=== PATIENT | male | born 1945 | race Caucasian/White ===

== ENCOUNTER → 2017-03-31 | Outpatient (CLI) | payer MEDICARE, BC ==
[2017-03-31 13:20] LABS: HCT (SEDRATE) 39.6 % (39.2-51.8)
== END ==
LOC: LAB 10:22
PROVIDERS: ATTEND Orthopaedic Surgery
DX: Z47.1 Aftercare following joint replacement surgery (principal); Z96.652 Presence of left artificial knee joint
CPT/HCPCS: 36415; 85651; 86140

== ENCOUNTER 2018-03-20 21:30 | Inpatient (IN) | payer MEDICARE, BC ==
[~2018-03-20] VITALS: Ht 154.9 cm; Wt 77.3 kg
[2018-03-20 22:22] LABS: BASOPHILS # (AUTO) 0.07 x10^3/uL (0-0.1); BASOPHILS % (AUTO) 1 % (0-1); EOSINOPHILS % (AUTO) 1 % (1-7); LYMPHOCYTES % (AUTO) 22 % (22-44); MD NO; MEAN CORPUSCULAR HEMOGLOBIN 29.2 pg (27.5-34.5); MEAN CORPUSCULAR HGB CONC 33.2 g/dL (33.2-36.2); MEAN CORPUSCULAR VOLUME 88.1 fL (81-97); MEAN PLATELET VOLUME 8.2 fL (7.4-10.4); MONOCYTES # (AUTO) 1.11 x10^3/uL (0.2-0.8); MONOCYTES % (AUTO) 14 % (2-9); NEUTROPHILS % (AUTO) 61 % (42-75); PLATELET COUNT 408 x10^3/uL (130-400); RED BLOOD COUNT 3.68 x10^6/uL (4.38-5.82); RED CELL DISTRIBUTION WIDTH 16.7 % (9.4-14.8)
[2018-03-20] MEDS ORDERED: SODIUM CHLORIDE FLUSH 10ML SYR IVF ONE (22:30)
[2018-03-20] MEDS ORDERED: SODIUM CHLORIDE 0.9% 1,000ML IVBOLUS ONE (22:30)
[2018-03-20 22:31] LABS: INTERNATIONAL NORMALIZED RATIO 1.01 (0.93-1.1); PROTHROMBIN TIME 10.7 Seconds (9.6-11.5)
[2018-03-20 22:33] LABS: ALANINE AMINOTRANSFERASE 26 U/L (12-78); ALBUMIN 3.2 g/dL (3.4-5.0); ANION GAP 9 mmol/L (5-15); CHLORIDE 112 mmol/L (98-107); CREATININE 1.69 mg/dL (0.7-1.3)
[2018-03-20 22:37] LABS: ALKALINE PHOSPHATASE 81 U/L (45-117); BILIRUBIN,TOTAL 0.2 mg/dL (0.2-1.0); TOTAL PROTEIN 6.1 g/dL (6.4-8.2)
[2018-03-20] MEDS ORDERED: CALCIUM GLUCONATE 4.6 MEQ in SODIUM CHLORIDE 0.9% 50 ML IV ONE (23:30)
[2018-03-20] MEDS ORDERED: DEXTROSE 50%, 50ML SYRINGE IVPush ONE (23:30)
[2018-03-20] MEDS ORDERED: CALCIUM GLUCONATE 4.6 MEQ/10 ML IVPush ONE (23:30)
[2018-03-20] MEDS ORDERED: INSULIN REGULAR 100 UNITS/ML, 3ML VIAL IVPush ONE (23:30)
[2018-03-20] MEDS ORDERED: DEXTROSE 50%, 50ML SYRINGE ONE (23:42)
[2018-03-20] MEDS ORDERED: INSULIN REGULAR 100 UNITS/ML, 3ML VIAL ONE (23:45)
[2018-03-20] MEDS ORDERED: CALCIUM GLUCONATE 4.6 MEQ/10 ML ONE (23:48)
--- NOTE | 2018-03-21 00:07 | NUR ---
IN FOR RECHECK, PT AGREES TO POC (ADMIT)
[2018-03-21 00:14] LABS: TROPONIN I 0.022 ng/mL (0.000-0.045)
--- NOTE | 2018-03-21 00:25 | NUR ---
Late Note: Pt reports increased weakness today progressing into left sided weakness. Pt arrives to ED with alert and oriented x4, pale, hypotensive, dizzy.
--- NOTE | 2018-03-21 00:25 | NUR ---
Pt to [place], will hang meds when back.
--- NOTE | 2018-03-21 00:26 | NUR ---
Pt reports feeling less dizzy and weakness resolving. Agrees to POC (meds, admit with nephrology consult) Aware of need for UA, states he will continue to try. Water given to pt after inital MD assessment with MD marlow
[2018-03-21] MEDS ORDERED: SODIUM BICARBONATE 8.4% 150 MEQ in DEXTROSE 5% 1,000 ML IV SCH ×2 (00:30)
[2018-03-21] MEDS ORDERED: ACETAMINOPHEN 325 MG TABLET PO PRN (00:30)
[2018-03-21] MEDS ORDERED: ONDANSETRON 2MG/ML, 2ML IVPush PRN (00:30)
--- NOTE | 2018-03-21 00:54 | NUR ---
Report to Bryan POLANCO. pt ready for transport.
--- NOTE | 2018-03-21 00:55 | NUR ---
Fluids infusing to floor
[2018-03-21 01:32] VITALS: BP 101/60
[2018-03-21 01:38] LABS: MICROSCOPIC AUTO
[2018-03-21 01:40] LABS: CULTURE INDICATED? YES
[2018-03-21] MEDS ORDERED: TIZANIDINE 4MG TABLET PO SCH ×2 (02:30→21:00)
[2018-03-21] MEDS ORDERED: HYDROcodone/APAP 5/325 TABLET PO PRN (02:30)
[2018-03-21] MEDS ORDERED: ATOR20TA86 PO (03:00)
[2018-03-21] MEDS ORDERED: GLIP2.5T3 PO (03:00)
[2018-03-21] MEDS ORDERED: PREG20SO PO (03:01)
[2018-03-21] MEDS ORDERED: TIZA4CAP PO (03:08)
[2018-03-21] MEDS ORDERED: MONT10TA9 PO (03:08)
[2018-03-21] MEDS ORDERED: OMEP20CA14 PO (03:08)
[2018-03-21] MEDS ORDERED: PANT40GR PO (03:08)
[2018-03-21] MEDS ORDERED: PROP10TA51 PO (03:08)
[2018-03-21] MEDS ORDERED: METF-649 PO (03:08)
[2018-03-21] MEDS ORDERED: RAMI10CA59 PO (03:08)
[2018-03-21] MEDS ORDERED: TRAM50TA2 PO (03:08)
[2018-03-21 04:58] LABS: ANION GAP 9 mmol/L (5-15); CALCIUM 7.9 mg/dL (8.5-10.1); CHLORIDE 110 mmol/L (98-107); CREATININE 1.43 mg/dL (0.7-1.3)
[2018-03-21] MEDS ORDERED: OMEPRAZOLE 20 MG CAPSULE.DR PO SCH (06:00)
[2018-03-21] MEDS ORDERED: PANTOPROZOLE 40MG TABLET PO SCH (06:00)
[2018-03-21 06:38] VITALS: BP 142/78
[2018-03-21] MEDS ORDERED: INSULIN LISPRO 100 UNITS/ML, PEN SQ-INSULIN SCH (07:00)
[2018-03-21] MEDS ORDERED: metFORMIN XR 500 MG TAB.ER.24H PO SCH (08:00)
[2018-03-21] MEDS ORDERED: MAGNESIUM SULFATE PMX 2GM/50ML 50 ML IV ONE (08:00)
[2018-03-21] MEDS ORDERED: GLIPizide ER 2.5 MG TABLET PO SCH (08:00)
[2018-03-21] MEDS: CEFTRIAXONE PMX 1GM/50ML 50 ML IV SCH (08:34)
[2018-03-21] MEDS ORDERED: PROPRANOLOL 40 MG TABLET PO SCH (09:00)
[2018-03-21] MEDS ORDERED: FLUTICASONE NASAL SPRAY 16GM NAS SCH (09:00)
[2018-03-21] MEDS ORDERED: PREGABALIN 150 MG CAPSULE PO SCH (09:00)
[2018-03-21] MEDS ORDERED: RAMIPRIL 10 MG CAPSULE PO SCH (09:00)
[2018-03-21] MEDS ORDERED: PHARMACY MAY ADJ FOR RENAL FX MC PRN (10:30)
[2018-03-21] MEDS: PYRIDOXINE 50MG TABLET PO SCH ×2 (12:20→20:07)
[2018-03-21] MEDS: CYANOCOBALAMIN 1,000 MCG TABLET PO SCH (12:20)
[2018-03-21] MEDS: INSULIN LISPRO 100 UNITS/ML, PEN SQ-INSULIN SCH ×3 (12:21→20:56)
[2018-03-21 12:55] LABS: TROPONIN I < 0.015 ng/mL (0.000-0.045)
[2018-03-21 13:06] LABS: HEMOGLOBIN A1C 8.4 % (4.2-6.3)
[2018-03-21 13:54] VITALS: BP 124/83
[2018-03-21 19:58] VITALS: BP 188/75
[2018-03-21] MEDS: PREGABALIN 150 MG CAPSULE PO SCH (20:07)
[2018-03-21] MEDS ORDERED: hydrALAzine 20 MG/ML, 1ML ONE (20:40)
[2018-03-21] MEDS: hydrALAzine 20 MG/ML, 1ML IV PRN (20:54)
[2018-03-21] MEDS ORDERED: MONTELUKAST 10 MG TABLET PO SCH (21:00)
[2018-03-21] MEDS ORDERED: ATORVASTATIN 40 MG TABLET PO SCH ×2 (21:00)
[2018-03-21 21:30] VITALS: BP 114/69
[2018-03-22] MEDS ORDERED: SODIUM BICARBONATE 8.4% 150 MEQ in DEXTROSE 5% 1,000 ML IV SCH (00:30)
[2018-03-22 02:43] VITALS: BP 149/89
[2018-03-22] MEDS ORDERED: PANTOPROZOLE 40MG TABLET PO SCH (06:00)
[2018-03-22 06:15] LABS: ALBUMIN 3.4 g/dL (3.4-5.0); ANION GAP 5 mmol/L (5-15); CALCIUM 8.8 mg/dL (8.5-10.1); CHLORIDE 111 mmol/L (98-107); CREATININE 1.25 mg/dL (0.7-1.3)
[2018-03-22] MEDS: CEFTRIAXONE PMX 1GM/50ML 50 ML IV SCH (07:39)
[2018-03-22] MEDS: hydrALAzine 20 MG/ML, 1ML IV PRN (07:40)
[2018-03-22] MEDS: PREGABALIN 150 MG CAPSULE PO SCH (07:40)
[2018-03-22] MEDS: PYRIDOXINE 50MG TABLET PO SCH (07:40)
[2018-03-22] MEDS: CYANOCOBALAMIN 1,000 MCG TABLET PO SCH (07:40)
[2018-03-22] MEDS: INSULIN LISPRO 100 UNITS/ML, PEN SQ-INSULIN SCH ×2 (07:41→11:00)
[2018-03-22 07:42] VITALS: BP 198/82
[2018-03-22] MEDS ORDERED: PANTOPRAZOLE GRAN. PKT 40 MG PO SCH (09:00)
[2018-03-22] MEDS ORDERED: MONTELUKAST 10 MG TABLET PO SCH (09:00)
[2018-03-22] MEDS ORDERED: OMEPRAZOLE 40 MG PO SCH (09:00)
[2018-03-22] MEDS ORDERED: CEFD300C37 PO (10:15)
[2018-03-22] MEDS ORDERED: PROPRANOLOL 10 MG TABLET PO SCH (10:30)
[2018-03-22] MEDS ORDERED: RAMIPRIL 10 MG CAPSULE PO SCH (10:30)
[2018-03-22] MEDS ORDERED: PRIMIDONE 250 MG TABLET PO SCH (10:30)
== END 2018-03-22 13:43 | disposition home or self-care (01) | DRG 689 ==
LOC: ED 23:33 → SUATTDRO 03-21 00:23 → EDIP 03-21 00:27 → 4WST 03-21 01:25
PROVIDERS: ADMIT Hospitalist; ATTEND Hospitalist
DX: N39.0 Urinary tract infection, site not specified (principal); N17.0 Acute kidney failure with tubular necrosis; Z88.2 Allergy status to sulfonamides; Z88.8 Allergy status to other drugs, medicaments and biological substances; E86.1 Hypovolemia; E87.5 Hyperkalemia; G25.0 Essential tremor; E86.0 Dehydration; E83.42 Hypomagnesemia; D64.9 Anemia, unspecified; E11.22 Type 2 diabetes mellitus with diabetic chronic kidney disease; E78.00 Pure hypercholesterolemia, unspecified; G89.29 Other chronic pain; I12.9 Hypertensive chronic kidney disease with stage 1 through stage 4 chronic kidney disease, or unspecified chronic kidney disease; N18.9 Chronic kidney disease, unspecified; N20.0 Calculus of kidney; Z79.4 Long term (current) use of insulin; Z82.3 Family history of stroke; Z86.010 Personal history of colon polyps
CPT/HCPCS: 36415; 70450; 76770; 80048; 80053; 80069; 81001; 82306; 82310; 82728; 82962; 83036; 83540; 83550; 83735; 83880; 83970; 84100; 84484; 85025; 85610; 85730; 87077; 87086; 87186; 93005; 96361; 96365; 96368; 96375; 99291; G0378; J0610; J0696; J7070; J0360; J1815; J3475; J7030

== ENCOUNTER 2018-08-30 06:44 | Outpatient (CLI) | payer MEDICARE, BC ==
[~2018-08-30] VITALS: Ht 154.9 cm; Wt 88.0 kg
[~2018-08-30 06:44] MED LIST: ATOR20TA86 PO; CEFD300C37 PO; GLIP2.5T3 PO; LEVO500T47 PO; METF-649 PO; MONT10TA9 PO; OMEP20CA14 PO; PANT40GR PO; PREG20SO PO; PRIM250T PO; PROP10TA51 PO; RAMI10CA59 PO; TIZA4CAP PO; TRAM100T3 PO; TRAM50TA2 PO
[2018-08-30 11:20] VITALS: BP 180/79
[2018-08-30] MEDS ORDERED: OXYC1TAB8 PO (11:36)
[2018-08-30] MEDS ORDERED: FERRIC CARBOXYMALTOSE 750 MG in SODIUM CHLORIDE 0.9% 250 ML IV ONE (12:00)
== END 2018-08-30 23:59 | disposition home or self-care (01) ==
LOC: INFUSION 06:44
PROVIDERS: ATTEND Nurse Practitioner
DX: D50.9 Iron deficiency anemia, unspecified (principal); I12.9 Hypertensive chronic kidney disease with stage 1 through stage 4 chronic kidney disease, or unspecified chronic kidney disease; E11.22 Type 2 diabetes mellitus with diabetic chronic kidney disease; N18.3 Chronic kidney disease, stage 3 (moderate); D63.1 Anemia in chronic kidney disease; G89.29 Other chronic pain; E11.40 Type 2 diabetes mellitus with diabetic neuropathy, unspecified; E78.00 Pure hypercholesterolemia, unspecified; Z87.440 Personal history of urinary (tract) infections; Z87.442 Personal history of urinary calculi; Z79.4 Long term (current) use of insulin; Z87.01 Personal history of pneumonia (recurrent); Z88.6 Allergy status to analgesic agent; Z88.1 Allergy status to other antibiotic agents
CPT/HCPCS: 96365; J1439; J7050

== ENCOUNTER 2018-09-06 06:03 | Outpatient (CLI) | payer MEDICARE, BC ==
[~2018-09-06] VITALS: Ht 154.9 cm; Wt 84.1 kg
[2018-09-06 14:10] VITALS: BP 151/82
== END 2018-09-06 23:59 | disposition home or self-care (01) ==
LOC: INFUSION 06:03
PROVIDERS: ATTEND Nurse Practitioner
DX: I12.9 Hypertensive chronic kidney disease with stage 1 through stage 4 chronic kidney disease, or unspecified chronic kidney disease (principal); E11.22 Type 2 diabetes mellitus with diabetic chronic kidney disease; N18.3 Chronic kidney disease, stage 3 (moderate); D63.1 Anemia in chronic kidney disease; E11.40 Type 2 diabetes mellitus with diabetic neuropathy, unspecified; E78.00 Pure hypercholesterolemia, unspecified; G89.29 Other chronic pain; Z87.442 Personal history of urinary calculi; Z87.01 Personal history of pneumonia (recurrent); Z87.440 Personal history of urinary (tract) infections; Z79.4 Long term (current) use of insulin; Z88.6 Allergy status to analgesic agent; Z79.2 Long term (current) use of antibiotics
CPT/HCPCS: 96365; J1439; J7050

== ENCOUNTER 2018-12-06 09:29 | Outpatient (CLI) | payer MEDICARE, BC ==
[~2018-12-06 09:29] MED LIST changes: +OXYC1TAB8 PO
== END 2018-12-06 23:59 | disposition home or self-care (01) ==
LOC: RAD 09:29
PROVIDERS: ATTEND Internal Medicine
DX: D50.9 Iron deficiency anemia, unspecified (principal); E11.9 Type 2 diabetes mellitus without complications; E66.9 Obesity, unspecified
CPT/HCPCS: 78264; A9541

== ENCOUNTER → 2019-04-10 | Outpatient (CLI) | payer MEDICARE, BC ==
[~2019-04-10] MED LIST changes: +MONT10TA11 PO; -MONT10TA9 PO; -OMEP20CA14 PO; +OMEP20CA20 PO
== END | disposition home or self-care (01) ==
LOC: CFH 13:28
PROVIDERS: ATTEND Internal Medicine
DX: Z01.818 Encounter for other preprocedural examination (principal); I65.21 Occlusion and stenosis of right carotid artery; I10 Essential (primary) hypertension; E11.9 Type 2 diabetes mellitus without complications; E78.00 Pure hypercholesterolemia, unspecified; M79.7 Fibromyalgia; J45.909 Unspecified asthma, uncomplicated; Z88.2 Allergy status to sulfonamides; Z88.8 Allergy status to other drugs, medicaments and biological substances; Z68.36 Body mass index [BMI] 36.0-36.9, adult
CPT/HCPCS: 93880